=== PATIENT | female | born 1935 | race Caucasian/White ===

== ENCOUNTER 2024-09-17 18:53 | Emergency (ER) | payer MEDICARE, OTHER ==
[~2024-09-17] VITALS: Ht 165.1 cm; Wt 108.9 kg
[2024-09-18 02:23] VITALS: BP 134/70; TEMP 98.1; O2SAT 98
== END 2024-09-18 02:24 | disposition home or self-care (01) ==
LOC: ER 18:55
DX: M25.552 Pain in left hip (principal); M25.551 Pain in right hip; I10 Essential (primary) hypertension; E11.9 Type 2 diabetes mellitus without complications; F03.90 Unspecified dementia, unspecified severity, without behavioral disturbance, psychotic disturbance, mood disturbance, and anxiety; R51.9 Headache, unspecified; W18.30XA Fall on same level, unspecified, initial encounter; Y93.89 Activity, other specified; Y92.89 Other specified places as the place of occurrence of the external cause; Y99.8 Other external cause status
CPT/HCPCS: 70450-TC; 72125-TC; 72192-TC; 73521